=== PATIENT | male | born 1955 | race Two or more races ===

== ENCOUNTER 2017-06-22 13:17 | Day surgery (SDC) | payer BC ==
[~2017-06-22] VITALS: Ht 175.3 cm; Wt 81.5 kg
[2017-06-22 13:54] VITALS: Ht 175.3 cm; Wt 81.5 kg
[2017-06-22] MEDS ORDERED: aspirin (14:10)
[2017-06-22] MEDS ORDERED: amlodipine (14:10)
[2017-06-22] MEDS ORDERED: crestor (14:10)
[2017-06-22] MEDS ORDERED: metformin (14:10)
[2017-06-22 14:33] VITALS: BP 116/79; PULSE 80; RESP 18
--- NOTE | 2017-06-22 15:19 | OPPN ---
Date/Time of Note Date/Time of Note DATE: 06/22/17 TIME: 15:17 Proc Note GI Procedure Date 06/22/17 Indication: screening/surveillance Pre-procedure Diagnosis screening Post-procedure Diagnosis normal exam Procedure Performed: Colonoscopy Surgeon see signature line Retread Mold Operator none Anesthesia Type: MAC Tourniquet Time none EBL none Transfusion required none Biopsy 1: none Grafts/Implants none Tubes/Drains none Complication(s) none Disposition: PACU Procedure Description Normal Exam DIANA GOODEN MD Jun 22, 2017 15:19
[2017-06-22] MEDS ORDERED: PROPOFOL 60 ML ONE (15:22)
[2017-06-22 16:00] VITALS: BP 104/77; PULSE 69; RESP 18
--- NOTE | 2017-06-23 06:58 | GILP ---
DATE OF PROCEDURE: 06/22/2017 INDICATIONS: Screening. FINDINGS: After informed consent, the patient was placed in left lateral position, sedated per ane sthesia. The Olympus video colonoscope was easily passed in patient's rectum. The instrument was a dvanced to the sigmoid, descending, transverse, ascending colon to the cecum. The appendiceal orifi ce and ileocecal valve were identified. These appeared normal. Ileocecal valve was traversed. Nor mal ileum was encountered. The instrument was slowly removed through the cecum, ascending, transver se, descending, and sigmoid colon. The mucosa throughout appeared normal. In the rectum, turnaroun d procedure was performed. Small internal hemorrhoids were noted. The instrument was removed from the patient's rectum. Patient tolerated procedure well. COMPLICATIONS: None. IMPRESSION: 1. Normal colonoscopic examination. PLAN 1. Postoperative instructions to patient. 2. Follow up as needed. WITHDRAWAL TIME: 15 minutes. PREPARATION: Good. Dictated By: DIANA BUSTOS/JALNY Conf#: [id number] DID#: [id number] CC: SOFIA DEL CASTILLO MD;*EndCC*
== END 2017-06-22 16:57 | disposition home or self-care (01) ==
LOC: GIL 13:17
PROVIDERS: ATTEND Internal Medicine Gastroenterology
DX: Z12.11 Encounter for screening for malignant neoplasm of colon (principal); E11.9 Type 2 diabetes mellitus without complications; I10 Essential (primary) hypertension; E78.5 Hyperlipidemia, unspecified